=== PATIENT | female | born 2000 | race Caucasian/White ===

== ENCOUNTER 2024-01-05 21:43 | Emergency (ER) | payer BC ==
[~2024-01-05] VITALS: Ht 172.7 cm; Wt 105.0 kg
[2024-01-05] MEDS ORDERED: ONDANSETRON 4 MG/TAB ODT SL ONE (22:05)
[2024-01-05 23:03] LABS: BASO% 0.7 % (0-3); HEMATOCRIT 42.4 % (37.0-47.0); IMMATURE GRANULOCYTES 0.2 % (0.0-5.0); LYMPH% 9.1 % (15-41); MEAN CELL VOLUME 90.8 fL CALC (80.0-100.0); NEUT# 8.61 thou/uL (2.00-7.15); RED BLOOD COUNT 4.67 mill/uL (4.20-5.60)
[2024-01-05 23:08] LABS: ALBUMIN 4.8 g/dL (3.2-5.0); BILIRUBIN, TOTAL 0.9 mg/dL (0.02-1.3); CREATININE 0.8 mg/dL (0.5-1.0); POTASSIUM 4.5 mmol/l (3.5-5.1); TOTAL PROTEIN 8.2 g/dL (6.3-8.2)
[2024-01-06] MEDS ORDERED: ONDANSETRON 4 MG/TAB ODT SL ONE ×2 (02:20→02:35)
[2024-01-06] MEDS ORDERED: ZOFRAN4 MG/TAB PO (02:32)
[2024-01-06] MEDS ORDERED: ACETAMINOPHEN 500 MG TAB PO ONE (02:50)
[2024-01-06 03:06] VITALS: BP 128/71
== END 2024-01-06 03:06 | disposition home or self-care (01) | DRG 392 ==
LOC: ED 21:43
PROVIDERS: Internal Medicine
DX: R10.13 Epigastric pain (principal); R11.2 Nausea with vomiting, unspecified; Z20.822 Contact with and (suspected) exposure to COVID-19